=== PATIENT | female | born 1945 | race Asian ===

== ENCOUNTER → 2017-08-24 | Outpatient (CLI) | payer OTHER | END | disposition home or self-care (01) | LOC: RADPV 09:06 | PROVIDERS: ATTEND Internal Medicine Nephrology | DX: N18.9 Chronic kidney disease, unspecified (principal); N28.1 Cyst of kidney, acquired | CPT/HCPCS: 76770 ==

== ENCOUNTER 2025-05-04 06:32 | Inpatient (IN) | payer OTHER ==
[~2025-05-04] VITALS: Ht 160 cm; Wt 92.3 kg
[2025-05-04 06:45] VITALS: PULSE 87; RESP 28; O2SAT 99
[2025-05-04 07:02] LABS: PLATELET COUNT (AUTO) 195 K/uL (150-450); RED BLOOD CELL COUNT(AUTO) 3.54 MIL/uL (4.00-5.20); RED CELL DISTRIBUTION WIDTH 20.8 % (11.5-14.5); WHITE BLOOD COUNT (AUTO) 8.8 K/uL (4.5-11.0)
[2025-05-04 07:08] LABS: RBC MORPHOLOGY COMMENT ABNORMAL RBC MORPH
[2025-05-04 07:13] LABS: CREATINE KINASE, TOTAL ONLY 76 U/L (26-192)
[2025-05-04 07:15] LABS: CALCIUM, TOTAL 7.7 mg/dL (8.8-10.5); CREATININE 3.88 mg/dL (0.60-1.30); GLOMERULAR FILTR. RATE CALC 11 mL/min (>60); GLUCOSE,RANDOM 121 mg/dL (70-110); SODIUM SERUM 144 mmol/L (136-145); TROPONIN I-HIGH SENSITIVITY 18 ng/L (<51); UREA NITROGEN, BLOOD 52 mg/dL (7-18)
[2025-05-04] MEDS: BUMETANIDE 0.25 MG/ML 4 ML VIAL IVP ONE (07:35)
[2025-05-04 09:31] VITALS: BP 189/55; PULSE 85; RESP 20; TEMP 98.1; O2SAT 100
[2025-05-04 11:29] VITALS: BP 186/56; PULSE 82; RESP 19; TEMP 98; O2SAT 100
[2025-05-04] MEDS ORDERED: HEPARIN SODIUM,PORCINE 1,000 UNITS/ML VIAL ONE (12:00)
[2025-05-04 16:00] VITALS: BP 172/49; PULSE 72; RESP 19; TEMP 98.2; O2SAT 96
[2025-05-04] MEDS ORDERED: GABA-529 PO (16:31)
[2025-05-04] MEDS ORDERED: BUME2TAB5 PO (16:31)
[2025-05-04] MEDS ORDERED: CALC667C PO (16:31)
[2025-05-04] MEDS ORDERED: CALC0.5C11 PO (16:31)
[2025-05-04] MEDS ORDERED: CALC200T29 PO (16:31)
[2025-05-04] MEDS ORDERED: ATOR40TA71 PO (16:31)
[2025-05-04] MEDS ORDERED: MAGNESIUM HYDROXIDE SUSPENSION 30 ML UDCUP PO PRN (16:45)
[2025-05-04] MEDS ORDERED: BISACODYL 10 MG RECTAL RECTAL SUPPOSITORY PR PRN (16:45)
[2025-05-04] MEDS ORDERED: INSU3INS3 SQ (16:59)
[2025-05-04] MEDS ORDERED: PANT40TA54 PO (16:59)
[2025-05-04] MEDS ORDERED: NIFE90TA72 PO (16:59)
[2025-05-04] MEDS ORDERED: SODI10PO3 PO (16:59)
[2025-05-04] MEDS ORDERED: MIRT-93 PO (16:59)
[2025-05-04] MEDS ORDERED: FLUT16H NASAL (16:59)
[2025-05-04] MEDS ORDERED: LOSA-382 PO (16:59)
[2025-05-04] MEDS ORDERED: CHOL100062 PO (16:59)
[2025-05-04] MEDS ORDERED: INSU100I47 SQ (16:59)
[2025-05-04] MEDS: PANTOPRAZOLE SODIUM 40 MG DR TABLET PO SCH (18:32)
[2025-05-04] MEDS: NIFEdipine 90 MG ER TABLET PO SCH (18:32)
[2025-05-04] MEDS ORDERED: DEXTROSE 50%-WATER 25 GM/50 ML SYRINGE IVP PRN (18:45)
[2025-05-04] MEDS: INSULIN LISPRO 100 UNITS/ML SQ PRN (19:19)
[2025-05-04 20:00] VITALS: BP 181/54; PULSE 75; RESP 20; TEMP 98.8; O2SAT 98
[2025-05-04] MEDS ORDERED: SODIUM BICARBONATE 650 MG TABLET PO SCH (21:00)
[2025-05-04 21:20] LABS: GLUCOMETER DEV NAME(LOC) 5N.2C; GLUCOSE,POINT OF CARE 110 MG/DL (70-110)
[2025-05-04] MEDS: LABETALOL HCL 100 MG TABLET PO SCH (21:33)
[2025-05-04] MEDS: GABAPENTIN 100 MG CAPSULE PO SCH (21:33)
[2025-05-04] MEDS: BUMETANIDE 0.25 MG/ML 4 ML VIAL IVP SCH (21:33)
[2025-05-04] MEDS: CALCIUM CARBONATE 500 MG CHEWABLE TABLET PO SCH (21:33)
[2025-05-04] MEDS: MIRTAZAPINE 30 MG TABLET PO SCH (21:33)
[2025-05-04 21:46] LABS: GLUCOMETER DEV NAME(LOC) 5N.1D; GLUCOSE,POINT OF CARE 186 MG/DL (70-110)
[2025-05-04 21:46] LABS: GLUCOMETER DEV NAME(LOC) 5N.1D; GLUCOSE,POINT OF CARE 164 MG/DL (70-110)
[2025-05-04 23:41] VITALS: BP 174/48; PULSE 75; RESP 22; TEMP 98.6; O2SAT 98
[2025-05-05] VITALS (12 sets, daily range): BP systolic 133–160; BP diastolic 41–52; PULSE 61–81; RESP 14–22; TEMP 97.7–98.4; O2SAT 95–100
[2025-05-05] MEDS: ALBUTEROL SULFATE 2.5 MG/0.5 ML NEB SOLUTION NEB PRN (00:06)
[2025-05-05] MEDS: IPRATROPIUM BROMIDE 0.5 MG/2.5 ML NEB SOLUTION NEB PRN (00:06)
[2025-05-05 00:15] LABS: APPEARANCE,URINE CLEAR (CLEAR); GLUCOSE, URINE (UA) 70-100 mg/dL (NEGATIVE); LEUKOCYTE ESTERASE ,URINE NEGATIVE (NEGATIVE); NITRATE,URINE NEGATIVE (NEGATIVE); OCCULT BLOOD,URINE TRACE (NEGATIVE); SPECIFIC GRAVITIY, URINE 1.012 (1.003-1.030)
[2025-05-05 00:27] LABS: SULFOSALICYLIC ACID,URINE 3+ (Negative)
[2025-05-05 00:28] LABS: SQUAMOUS EPITHELIAL CELL,UR Rare /LPF (None Seen)
[2025-05-05] MEDS: HEPARIN SODIUM,PORCINE 5,000 UNITS/ML VIAL SQ SCH (00:42)
[2025-05-05] MEDS: LABETALOL HCL 100 MG TABLET PO ONE (00:42)
[2025-05-05 06:20] LABS: GLUCOMETER DEV NAME(LOC) 5N.2C; GLUCOSE,POINT OF CARE 104 MG/DL (70-110)
[2025-05-05 06:23] LABS: PLATELET COUNT (AUTO) 172 K/uL (150-450); RED BLOOD CELL COUNT(AUTO) 3.30 MIL/uL (4.00-5.20); RED CELL DISTRIBUTION WIDTH 20.6 % (11.5-14.5); WHITE BLOOD COUNT (AUTO) 7.7 K/uL (4.5-11.0)
[2025-05-05 06:30] LABS: CALCIUM, TOTAL 8.0 mg/dL (8.8-10.5); CREATININE 3.98 mg/dL (0.60-1.30); GLOMERULAR FILTR. RATE CALC 11.0 mL/min (>60); GLUCOSE,RANDOM 112.0 mg/dL (70-110); SODIUM SERUM 146.0 mmol/L (136-145); UREA NITROGEN, BLOOD 55.0 mg/dL (7-18)
[2025-05-05 06:34] LABS: PHOSPHORUS 4.5 mg/dL (2.5-4.9)
[2025-05-05] MEDS: ATORVASTATIN CALCIUM 40 MG TABLET PO SCH (08:38)
[2025-05-05] MEDS: LABETALOL HCL 200 MG TABLET PO SCH (08:38)
[2025-05-05] MEDS: LORATADINE 10 MG TABLET PO SCH (08:38)
[2025-05-05] MEDS: INSULIN GLARGINE,HUM.REC.ANLOG 100 UNITS/ML SQ SCH (08:55)
[2025-05-05 11:45] LABS: GLUCOMETER DEV NAME(LOC) 5N.2C; GLUCOSE,POINT OF CARE 252 MG/DL (70-110)
[2025-05-05 17:00] LABS: GLUCOMETER DEV NAME(LOC) 5N.1D; GLUCOSE,POINT OF CARE 144 MG/DL (70-110)
[2025-05-06 00:51] LABS: GLUCOMETER DEV NAME(LOC) 5N.2C; GLUCOSE,POINT OF CARE 148 MG/DL (70-110)
[2025-05-06 04:31] VITALS: BP 157/42; PULSE 68; RESP 19; TEMP 98.4; O2SAT 98
[2025-05-06 07:11] VITALS: BP 147/50; PULSE 71; RESP 20; TEMP 98.1; O2SAT 96
[2025-05-06 07:24] LABS: PHOSPHORUS 4.9 mg/dL (2.5-4.9)
[2025-05-06 07:25] LABS: CALCIUM, TOTAL 7.5 mg/dL (8.8-10.5); CREATININE 4.44 mg/dL (0.60-1.30); GLOMERULAR FILTR. RATE CALC 10.0 mL/min (>60); GLUCOSE,RANDOM 120.0 mg/dL (70-110); SODIUM SERUM 147.0 mmol/L (136-145); UREA NITROGEN, BLOOD 55.0 mg/dL (7-18)
[2025-05-06] MEDS: SODIUM ZIRCONIUM CYCLOSILICATE 10 GM POWDER PACKET PO SCH (08:20)
[2025-05-06 08:36] LABS: GLUCOMETER DEV NAME(LOC) 5N.2C; GLUCOSE,POINT OF CARE 127 MG/DL (70-110)
[2025-05-06] MEDS: BUMETANIDE 0.25 MG/ML 4 ML VIAL IVP SCH (09:00)
[2025-05-06 09:34] LABS: CREATININE,SERUM FOR CRCL 4.44 mg/dL (0.60-1.30)
[2025-05-06 09:49] LABS: SODIUM TIMED,URINE 81.0 mmol/L (20-110); TPROTEIN TIMED,URINE 409.0 mg/dL; URINE UREA NITROGEN, TIMED 233.0 mg/dL (350-1000)
[2025-05-06 09:50] LABS: CREATININE CLEARANCE,URINE 7.0 ml/min (75-115); SODIUM URINE, 24HR CALC 47.0 mmol/24H (40-220); TOTAL VOLUME 24HRS,URINE 575.0 mL; TOTAL VOLUME,CREAT CLR 575.0 mL; TPROTEIN URINE, 24HRS COLL 2352.0 mg/24Hr (0-165); UREA NITROGEN URINE,24HR CALC 1340.0 mg/24H (7000-20000)
[2025-05-06] MEDS: EPOETIN ALFA 10,000 UNITS/ML VIAL SQ SCH (10:36)
[2025-05-06 10:51] VITALS: BP 140/45; PULSE 74; RESP 19; TEMP 98.9; O2SAT 98
[2025-05-06 11:36] LABS: GLUCOMETER DEV NAME(LOC) 5N.1D; GLUCOSE,POINT OF CARE 130 MG/DL (70-110)
[2025-05-06 14:58] VITALS: BP 126/47; PULSE 75; RESP 19; TEMP 98.4; O2SAT 99
[2025-05-06 19:11] VITALS: BP 149/47; PULSE 63; RESP 19; TEMP 98.2; O2SAT 100
[2025-05-06 20:06] LABS: GLUCOMETER DEV NAME(LOC) 5N.1D; GLUCOSE,POINT OF CARE 156 MG/DL (70-110)
[2025-05-06 21:10] LABS: GLUCOMETER DEV NAME(LOC) 5N.2C; GLUCOSE,POINT OF CARE 212 MG/DL (70-110)
[2025-05-07] VITALS (10 sets, daily range): BP systolic 142–186; BP diastolic 45–56; PULSE 61–82; RESP 17–19; TEMP 98.1–98.5; O2SAT 96–98
[2025-05-07 05:40] LABS: GLUCOMETER DEV NAME(LOC) 5N.1D; GLUCOSE,POINT OF CARE 90 MG/DL (70-110)
[2025-05-07 06:34] LABS: PLATELET COUNT (AUTO) 145 K/uL (150-450); RED BLOOD CELL COUNT(AUTO) 3.27 MIL/uL (4.00-5.20); RED CELL DISTRIBUTION WIDTH 21.2 % (11.5-14.5); WHITE BLOOD COUNT (AUTO) 6.7 K/uL (4.5-11.0)
[2025-05-07 06:55] LABS: PHOSPHORUS 5.2 mg/dL (2.5-4.9)
[2025-05-07 06:59] LABS: RBC MORPHOLOGY COMMENT ABNORMAL RBC MORPH
[2025-05-07 07:00] LABS: CALCIUM, TOTAL 7.7 mg/dL (8.8-10.5); CREATININE 4.64 mg/dL (0.60-1.30); GLOMERULAR FILTR. RATE CALC 9.0 mL/min (>60); GLUCOSE,RANDOM 83.0 mg/dL (70-110); SODIUM SERUM 148.0 mmol/L (136-145); UREA NITROGEN, BLOOD 56.0 mg/dL (7-18)
[2025-05-07] MEDS: BUMETANIDE 0.25 MG/ML 4 ML VIAL IVP SCH (17:26)
[2025-05-07 20:46] LABS: GLUCOMETER DEV NAME(LOC) 5N.2C; GLUCOSE,POINT OF CARE 145 MG/DL (70-110)
[2025-05-08] VITALS (12 sets, daily range): BP systolic 125–185; BP diastolic 45–57; PULSE 71–93; RESP 17–19; TEMP 97.7–99; O2SAT 98
[2025-05-08 03:15] LABS: GLUCOMETER DEV NAME(LOC) 5N.1D; GLUCOSE,POINT OF CARE 178 MG/DL (70-110)
[2025-05-08 03:15] LABS: GLUCOMETER DEV NAME(LOC) 5N.2C; GLUCOSE,POINT OF CARE 163 MG/DL (70-110)
[2025-05-08] MEDS ORDERED: LIDOCAINE/PF 2% 5 ML SYRINGE IVP ONE (06:32)
[2025-05-08] MEDS ORDERED: MIDAZOLAM HCL 2 MG/2 ML VIAL ONE (06:32)
[2025-05-08 06:56] LABS: GLUCOMETER DEV NAME(LOC) 5N.2C; GLUCOSE,POINT OF CARE 118 MG/DL (70-110)
[2025-05-08] MEDS: CHLORHEXIDINE GLUCONATE 2% TOWELETTE [2'S/6'S] TP ONE (07:00)
[2025-05-08] MEDS ORDERED: RINGERS SOLUTION,LACTATED 1,000 ML IV ONE (07:00)
[2025-05-08 07:04] LABS: PLATELET COUNT (AUTO) 155 K/uL (150-450); RED BLOOD CELL COUNT(AUTO) 3.48 MIL/uL (4.00-5.20); RED CELL DISTRIBUTION WIDTH 21.2 % (11.5-14.5); WHITE BLOOD COUNT (AUTO) 6.7 K/uL (4.5-11.0)
[2025-05-08 07:12] LABS: RBC MORPHOLOGY COMMENT ABNORMAL RBC MORPH
[2025-05-08 07:16] LABS: CALCIUM, TOTAL 8.0 mg/dL (8.8-10.5); CREATININE 4.39 mg/dL (0.60-1.30); GLOMERULAR FILTR. RATE CALC 10.0 mL/min (>60); GLUCOSE,RANDOM 112.0 mg/dL (70-110); SODIUM SERUM 148.0 mmol/L (136-145); UREA NITROGEN, BLOOD 55.0 mg/dL (7-18)
[2025-05-08 07:20] LABS: PHOSPHORUS 4.5 mg/dL (2.5-4.9)
[2025-05-08 10:21] LABS: GLUCOMETER DEV NAME(LOC) SDS.; GLUCOSE,POINT OF CARE 117 MG/DL (70-110)
[2025-05-08 10:21] LABS: GLUCOMETER DEV NAME(LOC) SDS.; GLUCOSE,POINT OF CARE 114 MG/DL (70-110)
[2025-05-08] MEDS: ETHYL ALCOHOL 62% ANTISEPTIC NASAL SANITIZER 0.6 ML AMPUL NASAL ONE (10:38)
[2025-05-08] MEDS: CLINDAMYCIN 600 MG/D5% WATER 50 ML IV ONE (10:40)
[2025-05-08] MEDS: ACETAMINOPHEN 325 MG TABLET PO PRN (10:50)
[2025-05-08] MEDS ORDERED: SODIUM CHLORIDE 0.9% 1,000 ML ONE (11:17)
[2025-05-08] MEDS: HEPARIN SODIUM,PORCINE 1,000 UNITS/ML VIAL IVCATH ONE ×2 (14:25)
[2025-05-08] MEDS: ALBUMIN HUMAN 25%-12.5GM/50ML IV BOTTLE IV PRN (14:27)
[2025-05-08] MEDS: FOLIC ACID/VIT B COMPLEX AND C TABLET PO SCH (14:36)
[2025-05-08] MEDS ORDERED: ALBUMIN HUMAN 25%-12.5GM/50ML IV BOTTLE IV ONE (16:32)
[2025-05-08] MEDS ORDERED: HEPARIN SODIUM,PORCINE 1,000 UNITS/ML VIAL IVP ONE (16:32)
[2025-05-08] MEDS: BUMETANIDE 0.25 MG/ML 4 ML VIAL IVP SCH (21:21)
[2025-05-09] VITALS (16 sets, daily range): BP systolic 128–176; BP diastolic 37–103; PULSE 79–94; RESP 18; TEMP 97.7–98.6; O2SAT 95–100
[2025-05-09 08:16] LABS: GLUCOMETER DEV NAME(LOC) 5N.1D; GLUCOSE,POINT OF CARE 152 MG/DL (70-110)
[2025-05-09 08:16] LABS: GLUCOMETER DEV NAME(LOC) 5N.1D; GLUCOSE,POINT OF CARE 107 MG/DL (70-110)
[2025-05-09 20:51] LABS: GLUCOMETER DEV NAME(LOC) 5N.1D; GLUCOSE,POINT OF CARE 127 MG/DL (70-110)
[2025-05-09 20:51] LABS: GLUCOMETER DEV NAME(LOC) 5N.1D; GLUCOSE,POINT OF CARE 193 MG/DL (70-110)
[2025-05-09 20:51] LABS: GLUCOMETER DEV NAME(LOC) 5N.1D; GLUCOSE,POINT OF CARE 170 MG/DL (70-110)
[2025-05-10 00:07] VITALS: BP 166/45; PULSE 82; RESP 18; TEMP 98.8; O2SAT 98
[2025-05-10 03:31] LABS: GLUCOMETER DEV NAME(LOC) 5N.2C; GLUCOSE,POINT OF CARE 137 MG/DL (70-110)
[2025-05-10 05:11] VITALS: BP 176/47; PULSE 89; RESP 16; TEMP 98.5; O2SAT 97
[2025-05-10 07:07] LABS: PLATELET COUNT (AUTO) 108 K/uL (150-450); RED BLOOD CELL COUNT(AUTO) 3.61 MIL/uL (4.00-5.20); RED CELL DISTRIBUTION WIDTH 21.7 % (11.5-14.5); WHITE BLOOD COUNT (AUTO) 6.6 K/uL (4.5-11.0)
[2025-05-10 07:16] LABS: CALCIUM, TOTAL 8.4 mg/dL (8.8-10.5); CREATININE 2.94 mg/dL (0.60-1.30); GLOMERULAR FILTR. RATE CALC 15.0 mL/min (>60); GLUCOSE,RANDOM 125.0 mg/dL (70-110); SODIUM SERUM 140.0 mmol/L (136-145); UREA NITROGEN, BLOOD 20.0 mg/dL (7-18)
[2025-05-10 08:11] LABS: GLUCOMETER DEV NAME(LOC) 5N.2C; GLUCOSE,POINT OF CARE 122 MG/DL (70-110)
[2025-05-10 08:22] VITALS: BP 170/49; PULSE 73; RESP 18; TEMP 98.6; O2SAT 97
[2025-05-10] MEDS: BUMETANIDE 1 MG TABLET PO SCH (08:51)
[2025-05-10 11:31] VITALS: BP 150/43; PULSE 69; RESP 19; TEMP 98.4; O2SAT 100
[2025-05-10 16:02] VITALS: BP 129/45; PULSE 72; RESP 20; TEMP 98.8; O2SAT 98
[2025-05-10 20:00] VITALS: BP 149/39; PULSE 76; RESP 20; TEMP 98.2; O2SAT 99
[2025-05-10 20:11] LABS: GLUCOMETER DEV NAME(LOC) 5N.2C; GLUCOSE,POINT OF CARE 134 MG/DL (70-110)
[2025-05-10 20:11] LABS: GLUCOMETER DEV NAME(LOC) 5N.2C; GLUCOSE,POINT OF CARE 119 MG/DL (70-110)
[2025-05-11] VITALS (18 sets, daily range): BP systolic 128–178; BP diastolic 34–65; PULSE 70–90; RESP 17–19; TEMP 97.9–98.8; O2SAT 96–98
[2025-05-11 05:59] LABS: PLATELET COUNT (AUTO) 119 K/uL (150-450); RED BLOOD CELL COUNT(AUTO) 3.42 MIL/uL (4.00-5.20); RED CELL DISTRIBUTION WIDTH 21.9 % (11.5-14.5); WHITE BLOOD COUNT (AUTO) 6.2 K/uL (4.5-11.0)
[2025-05-11 06:06] LABS: CALCIUM, TOTAL 8.4 mg/dL (8.8-10.5); CREATININE 3.94 mg/dL (0.60-1.30); GLOMERULAR FILTR. RATE CALC 11.0 mL/min (>60); GLUCOSE,RANDOM 110.0 mg/dL (70-110); SODIUM SERUM 144.0 mmol/L (136-145); UREA NITROGEN, BLOOD 29.0 mg/dL (7-18)
[2025-05-11 06:25] LABS: GLUCOMETER DEV NAME(LOC) 5S.1D; GLUCOSE,POINT OF CARE 172 MG/DL (70-110)
[2025-05-11 06:25] LABS: GLUCOMETER DEV NAME(LOC) 5S.1D; GLUCOSE,POINT OF CARE 120 MG/DL (70-110)
[2025-05-11] MEDS ORDERED: HEPARIN SODIUM,PORCINE 1,000 UNITS/ML VIAL IVP ONE (08:42)
[2025-05-11] MEDS ORDERED: SODIUM CHLORIDE 0.9% 2,000 ML ONE (11:10)
[2025-05-11 18:36] LABS: GLUCOMETER DEV NAME(LOC) 5S.1D; GLUCOSE,POINT OF CARE 132 MG/DL (70-110)
[2025-05-11 18:36] LABS: GLUCOMETER DEV NAME(LOC) 5S.1D; GLUCOSE,POINT OF CARE 94 MG/DL (70-110)
[2025-05-11] MEDS: ZOLPIDEM TARTRATE 5 MG TABLET PO PRN (21:01)
[2025-05-12] VITALS (8 sets, daily range): BP systolic 135–183; BP diastolic 36–72; PULSE 70–84; RESP 17–18; TEMP 98.1–98.4; O2SAT 97–99
[2025-05-12 06:43] LABS: PLATELET COUNT (AUTO) 101 K/uL (150-450); RED BLOOD CELL COUNT(AUTO) 3.74 MIL/uL (4.00-5.20); RED CELL DISTRIBUTION WIDTH 21.6 % (11.5-14.5); WHITE BLOOD COUNT (AUTO) 7.5 K/uL (4.5-11.0)
[2025-05-12 07:05] LABS: CALCIUM, TOTAL 8.7 mg/dL (8.8-10.5); CREATININE 2.95 mg/dL (0.60-1.30); GLOMERULAR FILTR. RATE CALC 15.0 mL/min (>60); GLUCOSE,RANDOM 92.0 mg/dL (70-110); SODIUM SERUM 137.0 mmol/L (136-145); UREA NITROGEN, BLOOD 17.0 mg/dL (7-18)
[2025-05-12] MEDS ORDERED: LIDOCAINE/PF 1% 30 ML VIAL ONE (07:38)
[2025-05-12] MEDS ORDERED: SODIUM BICARBONATE 50 MEQ/50 ML VIAL ONE (07:38)
[2025-05-12] MEDS ORDERED: IOHEXOL 300 MG/ML 50 ML VIAL ONE (08:12)
[2025-05-12] MEDS ORDERED: FentaNYL CITRATE PF 100 MCG/2 ML VIAL ONE (08:34)
[2025-05-12] MEDS ORDERED: MIDAZOLAM HCL 2 MG/2 ML VIAL ONE (08:34)
[2025-05-12] MEDS: MIDAZOLAM HCL 2 MG/2 ML VIAL IVP ONE (09:00)
[2025-05-12] MEDS: LIDOCAINE 1% 30 ML/SOD BICARB 8.4% 4 ML SQ ONE (09:00)
[2025-05-12] MEDS: FentaNYL CITRATE PF 100 MCG/2 ML VIAL IVP ONE (09:01)
[2025-05-12 12:20] LABS: GLUCOMETER DEV NAME(LOC) 5S.1D; GLUCOSE,POINT OF CARE 94 MG/DL (70-110)
[2025-05-12 12:20] LABS: GLUCOMETER DEV NAME(LOC) 5S.1D; GLUCOSE,POINT OF CARE 93 MG/DL (70-110)
[2025-05-12 12:20] LABS: GLUCOMETER DEV NAME(LOC) 5S.1D; GLUCOSE,POINT OF CARE 168 MG/DL (70-110)
[2025-05-12 20:20] LABS: GLUCOMETER DEV NAME(LOC) 5S.1D; GLUCOSE,POINT OF CARE 111 MG/DL (70-110)
[2025-05-13] VITALS (14 sets, daily range): BP systolic 134–175; BP diastolic 37–78; PULSE 65–82; RESP 18; TEMP 76–98.4; O2SAT 97–99
[2025-05-13 06:51] LABS: PLATELET COUNT (AUTO) 104 K/uL (150-450); RED BLOOD CELL COUNT(AUTO) 3.70 MIL/uL (4.00-5.20); RED CELL DISTRIBUTION WIDTH 21.8 % (11.5-14.5); WHITE BLOOD COUNT (AUTO) 7.3 K/uL (4.5-11.0)
[2025-05-13 07:26] LABS: CALCIUM, TOTAL 8.5 mg/dL (8.8-10.5); CREATININE 4.85 mg/dL (0.60-1.30); GLOMERULAR FILTR. RATE CALC 9.0 mL/min (>60); GLUCOSE,RANDOM 96.0 mg/dL (70-110); SODIUM SERUM 139.0 mmol/L (136-145); UREA NITROGEN, BLOOD 28.0 mg/dL (7-18)
[2025-05-13 08:01] LABS: RBC MORPHOLOGY COMMENT ABNORMAL RBC MORPH
[2025-05-13 08:16] LABS: GLUCOMETER DEV NAME(LOC) 5N.2C; GLUCOSE,POINT OF CARE 100 MG/DL (70-110)
[2025-05-13 08:16] LABS: GLUCOMETER DEV NAME(LOC) 5N.2C; GLUCOSE,POINT OF CARE 116 MG/DL (70-110)
[2025-05-13 08:31] LABS: GLUCOMETER DEV NAME(LOC) 5S.1D; GLUCOSE,POINT OF CARE 94 MG/DL (70-110)
[2025-05-13] MEDS ORDERED: SODIUM CHLORIDE 0.9% 2,000 ML ONE (12:36)
[2025-05-13] MEDS: ONDANSETRON HCL 4 MG/2 ML VIAL IVP PRN (15:56)
[2025-05-13] MEDS: HEPARIN SODIUM,PORCINE 1,000 UNITS/ML VIAL IVCATH ONE ×2 (17:50)
[2025-05-13] MEDS: HEPARIN SODIUM,PORCINE 1,000 UNITS/ML VIAL IVP PRN (17:51)
[2025-05-13 18:06] LABS: GLUCOMETER DEV NAME(LOC) 5S.1D; GLUCOSE,POINT OF CARE 165 MG/DL (70-110)
[2025-05-13 18:06] LABS: GLUCOMETER DEV NAME(LOC) 5S.1D; GLUCOSE,POINT OF CARE 135 MG/DL (70-110)
[2025-05-14 00:44] VITALS: BP 144/48; PULSE 67; RESP 18; TEMP 97.9; O2SAT 96
[2025-05-14 04:30] VITALS: BP 153/41; PULSE 79; RESP 18; TEMP 98.3; O2SAT 99
[2025-05-14 05:56] LABS: GLUCOMETER DEV NAME(LOC) 5N.2C; GLUCOSE,POINT OF CARE 137 MG/DL (70-110)
[2025-05-14 06:50] LABS: GLUCOMETER DEV NAME(LOC) 5S.1D; GLUCOSE,POINT OF CARE 110 MG/DL (70-110)
[2025-05-14 06:51] LABS: PLATELET COUNT (AUTO) 94 K/uL (150-450); RED BLOOD CELL COUNT(AUTO) 3.98 MIL/uL (4.00-5.20); RED CELL DISTRIBUTION WIDTH 21.8 % (11.5-14.5); WHITE BLOOD COUNT (AUTO) 7.8 K/uL (4.5-11.0)
[2025-05-14 07:06] LABS: CALCIUM, TOTAL 8.4 mg/dL (8.8-10.5); CREATININE 3.66 mg/dL (0.60-1.30); GLOMERULAR FILTR. RATE CALC 12.0 mL/min (>60); GLUCOSE,RANDOM 96.0 mg/dL (70-110); SODIUM SERUM 137.0 mmol/L (136-145); UREA NITROGEN, BLOOD 20.0 mg/dL (7-18)
[2025-05-14 07:50] VITALS: BP 159/41; PULSE 75; RESP 19; TEMP 98.2; O2SAT 99
[2025-05-14 10:51] VITALS: BP 142/40; PULSE 85; RESP 18; TEMP 98.2; O2SAT 97
[2025-05-14 12:00] LABS: GLUCOMETER DEV NAME(LOC) 5N.2C; GLUCOSE,POINT OF CARE 132 MG/DL (70-110)
[2025-05-14] MEDS ORDERED: CALC500T37 PO (15:55)
[2025-05-14] MEDS ORDERED: ATOR40TA71 PO (15:55)
[2025-05-14] MEDS ORDERED: FOLI0.8T54 PO (15:55)
[2025-05-14] MEDS ORDERED: MIRT-149 PO (15:55)
[2025-05-14] MEDS ORDERED: PANT-31 PO (15:55)
[2025-05-14] MEDS ORDERED: NIFE90TA91 PO (15:55)
[2025-05-14] MEDS ORDERED: LABE200T56 PO (15:55)
[2025-05-14] MEDS ORDERED: LORA10TA60 PO (15:55)
[2025-05-14 15:57] VITALS: BP 133/41; PULSE 71; RESP 19; TEMP 98; O2SAT 95
[2025-05-14 18:01] LABS: GLUCOMETER DEV NAME(LOC) 5N.2C; GLUCOSE,POINT OF CARE 173 MG/DL (70-110)
[2025-05-15 05:45] LABS: GLUCOMETER DEV NAME(LOC) 5N.2C; GLUCOSE,POINT OF CARE 166 MG/DL (70-110)
[2025-05-19] MEDS ORDERED: NIFE90TA91 PO (07:20)
[2025-05-19] MEDS ORDERED: ISOS30TA92 PO (07:20)
[2025-05-19] MEDS ORDERED: GABA-1181 PO (07:20)
[2025-05-19] MEDS ORDERED: INSU100V SQ (07:33)
[2025-05-19] MEDS ORDERED: AZIT-164 PO (11:37)
[2025-05-19] MEDS ORDERED: CEFD300C18 PO (11:37)
== END 2025-05-14 19:15 | disposition home or self-care (01) | DRG 291 ==
LOC: EMS 06:53 → EDH 07:25 → 5N 09:20
PROVIDERS: ADMIT Hospitalist; ATTEND Hospitalist
PROC: 5A09357 Assistance with Respiratory Ventilation, Less than 24 Consecutive Hours, Continuous Positive Airway Pressure (ICD-10-PCS; 2025-05-04)
PROC: B54MZZA Ultrasonography of Right Upper Extremity Veins, Guidance (ICD-10-PCS; 2025-05-08)
PROC: 5A1D70Z Performance of Urinary Filtration, Intermittent, Less than 6 Hours Per Day (ICD-10-PCS; 2025-05-08)
PROC: 05HY33Z Insertion of Infusion Device into Upper Vein, Percutaneous Approach (ICD-10-PCS; principal; 2025-05-08 07:40)
PROC: 5A1D70Z Performance of Urinary Filtration, Intermittent, Less than 6 Hours Per Day (ICD-10-PCS; 2025-05-09)
PROC: 5A1D70Z Performance of Urinary Filtration, Intermittent, Less than 6 Hours Per Day (ICD-10-PCS; 2025-05-11)
PROC: 05PYX3Z Removal of Infusion Device from Upper Vein, External Approach (ICD-10-PCS; 2025-05-12)
PROC: 0JH63XZ Insertion of Tunneled Vascular Access Device into Chest Subcutaneous Tissue and Fascia, Percutaneous Approach (ICD-10-PCS; 2025-05-12)
PROC: 06H033Z Insertion of Infusion Device into Inferior Vena Cava, Percutaneous Approach (ICD-10-PCS; 2025-05-12)
PROC: B5191ZA Fluoroscopy of Inferior Vena Cava using Low Osmolar Contrast, Guidance (ICD-10-PCS; 2025-05-12)
PROC: B549ZZA Ultrasonography of Inferior Vena Cava, Guidance (ICD-10-PCS; 2025-05-12)
PROC: 5A1D70Z Performance of Urinary Filtration, Intermittent, Less than 6 Hours Per Day (ICD-10-PCS; 2025-05-13)
DX: I13.2 Hypertensive heart and chronic kidney disease with heart failure and with stage 5 chronic kidney disease, or end stage renal disease (principal); I50.33 Acute on chronic diastolic (congestive) heart failure; J96.00 Acute respiratory failure, unspecified whether with hypoxia or hypercapnia; N18.6 End stage renal disease; N17.9 Acute kidney failure, unspecified; E87.0 Hyperosmolality and hypernatremia; E55.9 Vitamin D deficiency, unspecified; E11.22 Type 2 diabetes mellitus with diabetic chronic kidney disease; D64.9 Anemia, unspecified; E78.5 Hyperlipidemia, unspecified; Z88.0 Allergy status to penicillin; Z88.5 Allergy status to narcotic agent; Z79.899 Other long term (current) drug therapy; Z79.4 Long term (current) use of insulin
CPT/HCPCS: 36245; 36561; 71045; 76000; 80048; 81001; 81002; 81050; 82550; 82575; 82962; 83735; 83880; 84100; 84156; 84300; 84484; 84540; 85025; 85610; 85730; 87081; 87340; 90935; 93005; 93306; 94640; 94660; 94760; 96374; 97116; 97163; 97530; 99291; J0360; J0885; J1644; J1815; J2250; J2405; J3010; J3490; J7030; P9047; Q9967; 36415-L1; 36415-TC; J7613; Z7610